=== PATIENT | male | born 1965 | race Caucasian/White ===

== ENCOUNTER 2024-12-18 16:41 | Outpatient (CLI) | payer OTHER, SELFPAY ==
--- OUTSIDE RECORDS SUMMARY | 2024-12-04 11:20 | XMS_ITS | Encounter Summary ---
Author Organization [facility] Address [address] 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 and lower extremity pain Tobacco use Procedures MR Lumbar Spine wo IV Contrast Stella Asher APRN, DNP [address] [facility] [address] [place] [address] Phone: tel: fax: Referral ID Status Reason Start Date Expiration Date V isits Requested Visits Authorized [id number] Authorized 12/04/2024 06/05/2026 1 1 Reason for Visit * Reason Comments Pre-op Exam Encounter Details Date Type Department Care Team (Late st Contact Info) Description 12/04/2024 11:20 AM EDT Consult [facility] [address] [place] [address] Stella Asher APRN, DNP [address] [place] [address] Pre-op testing (Primary Dx); Radiculopathy, lumbar region; Spinal stenosis of lumbar region with neurogenic claudication; Chronic midline low back pain with left-sided sciatica; Degeneration of intervertebral disc of lumbar region with discogenic back pain and lower extremity pain; Tobacco use Social History Tobacco Use Types Packs/Day Years Used Date Smoking Tobacco: Former Cigarettes Smokeless Tobacco: Current Chew Comments:Quit smoking 2022 Alcohol Use Standard Drinks/Week Comments Never 0 (1 standard drink = 0.6 oz pur e alcohol) PHQ-2 Answer Date Recorded Patient Health Questionnaire-2 Score 3 04/16/2024 PHQ-9 Answer Date Recorded Patient Health Questionnaire-9 Score 12 04/16/2024 Sex and Gender Information Value Date Recorded Sex Assigned at Not on file Legal Sex Male 1:54 PM EST Gender Identity Not on file Sexual Orientation Not on file documented as of this encounter Last Filed Vital Signs Vital Sign Reading Time Taken Comments Blood Pressure 120/80 12/04/2024 12:12 PM EDT Pulse 80 12/04/2024 12:12 PM EDT Temperature - - Respiratory Rate - - Oxygen Saturation 97% 12/04/2024 12: 12 PM EDT Inhaled Oxygen Concentration - - Weight 83.4 kg (183 lb 13.8 oz) 025 12:12 PM EDT Height 177.8 cm (5' 10 ) 12/04/2024 12: 12 PM EDT Body Mass Index 26.38 12/04/2024 12:12 PM EDT documented in this encounter Miscellaneous Notes * Progress Notes - Stella Asher, NUT TIGHTENER, DNP - 12/04/2024 11:20 AM EDT We had the pleasure of evaluating your patient today for preoperative neurosurgical evaluation. My full exam follows. Chief Complaint: Preoperative clearance History of Present Illness: Camilo Bowden is a pleasant 59 y.o. male with a past medical history of myocardial infarction status post PCI with a stent placement in 2016 on aspirin 81 mg, previous smoker now dependent on chewing tobacco who presents to the neurosurgical clinic for preoperative planning and assessment. He is scheduled to undergo a L4-L5 MIS TLIF with posterior lumbar fusion on 12/23/2024. As you may recall, the patient was scheduled to undergo the same surgery in December of 2023, but unfortunately it was denied by insurance as it was not documented that the patient had exhausted conservative treatment. At that point in time, the patient was reporting 2 years of progressivelyworsening back pain with left L5 radiculopathy that has worsened with standing on concrete, walking, and with any prolonged activity. He was also experiencing numbness in the same distribution. He presented back to the neurosurgical clinic in April, for continued evaluation of low back and mostly left lower extremity pain that radiated down lateral thigh and calf to the dorsum of the left foot. Today, pain continues to get progressively worse, particularly with any activity and were improved when sitting or lying down. He has exhausted conservative measures including physical therapy and epidural steroid injections. Epidural steroid injections yielded significant relief, but only lasted for 2 days. 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 Given the severe, unrelenting, and progressively worsening nature of the patient's symptoms despite multiple conservative modalities, he has elected to move forward with neurosurgical intervention. Past Medical History[1] Surgical History[2] Family History[3] Social History[4] Current Scheduled Medications[5] Current Continuous Medications[6] Current PRN Medications[7] 14 point review of systems completed and negative except as indicated in HPI Visit Vitals Smoking Status Former Appointment on 12/06/2023 Component Date Value Ref Range Status aPTT 12/06/2023 38 (H) 25 - 35 sec Final Prothrombin Time 12/06/2023 12.3 12.0 - 14.3 sec Final INR 12/06/2023 0.9 0.9 - 1.1 Final Color, Urine 12/06/2023 Yellow Final Clarity, Urine 12/06/2023 Clear Final Spec [place], Urine 12/06/2023 1.026 <=1.005 to >=1.030 Final pH, Urine 12/06/2023 5.5 4.5 to 8 Final Protein, Urine 12/06/2023 Negative Negative mg/dL Final Glucose, Urine 12/06/2023 Negative Negative mg/dL Final Ketones, Urine 12/06/2023 Negative Negative mg/dL Final Blood, Urine 12/06/2023 Negative Negative Final Bilirubin, Urine 12/06/2023 Negative Negative Final Urobilinogen, Urine 12/06/2023 0.2 0.2 to 1.0 mg/dL Final Leukocytes, Urine 12/06/2023 Negative Negative Final Nitrite, Urine 12/06/2023 Negative Negative Final Glucose, Plasma 12/06/2023 86 74 - 99 mg/dL Final BUN, Plasma 12/06/2023 21 7 - 21 mg/dL Final Creatinine, Plasma 12/06/2023 1.22 (H) 0.70 - 1.20 mg/dL Final BUN/Creatinine Ratio 12/06/2023 17 Final Sodium, Plasma 12/06/2023 139 136 - 145 mmol/L Final Potassium, Plasma 12/06/2023 4.8 3.6 - 4.9 mmol/L Final Chloride, Plasma 12/06/2023 102 97 - 107 mmol/L Final CO2, Plasma 12/06/2023 26 22 - 29 mmol/L Final Anion Gap 12/06/2023 11 6 - 16 mmol/L Final Total Calcium, Plasma 12/06/2023 10.0 8.9 - 10.2 mg/dL Final eGFRcr 12/06/2023 68.3 mL/min/1.73m*2 Final Reported eGFRcr in mL/min/1.73m2 is based the CKD-EPI 2020 equation that does not use a race coefficient. WBC Count 12/06/2023 6.90 3.70 - 10.30 10*3/uL Final RBC Count 12/06/2023 4.57 (L) 4.60 - 6.10 10*6/uL Final HGB 12/06/2023 14.0 13.7 - 17.5 g/dL Final HCT 12/06/2023 40.8 40.0 - 51.0 % Final Platelet Count 12/06/2023 284 155 - 369 10*3/uL Final MCV 12/06/2023 89 79 - 98 fL Final MCH 12/06/2023 30.6 26.0 - 32.0 pg Final MCHC 12/06/2023 34.3 30.7 - 35.5 g/dL Final RDW 12/06/2023 13.6 11.5 - 14.5 % Final MPV 12/06/2023 9.2 8.8 - 12.5 fL Final nRBC 12/06/2023 0.0 <=0.0 per 100 WBCs Final Differential Type 12/06/2023 Automated Final Neutrophils % 12/06/2023 57.0 % Final Lymphocytes % 12/06/2023 30.0 % Final Monocytes % 12/06/2023 7.0 % Final Eosinophils % 12/06/2023 5.0 % Final Basophils % 12/06/2023 1.0 % Final Immature Granulocytes % 12/06/2023 0.0 % Final Neutrophils Absolute 12/06/2023 3.96 1.60 - 6.10 10*3/uL Final Lymphocytes Absolute 12/06/2023 2.04 1.20 - 3.90 10*3/uL Final Monocytes Absolute 12/06/2023 0.46 0.30 - 0.90 10*3/uL Final Eosinophils Absolute 12/06/2023 0.36 0.00 - 0.50 10*3/uL Final Basophils Absolute 12/06/2023 0.05 0.00 - 0.10 10*3/uL Final Immature Granulocytes Absolute 12/06/2023 0.03 0.00 - 0.06 10*3/uL Final Physical Exam: General Physical Exam Constitutional No acute distress. Patient is appropriate historian and cooperative throughout exam.Well nourished, well groomed. Alert and oriented x4. Head Normocephalic and atraumatic. Eyes Pupils are equal, round, and reactive to light. Neck No tracheal deviation or JVD noted. No previous surgical scars Cardiovascular Minimal to no peripheral edema, intact distal pulses Pulmonary/Chest No increased effort noted, no shortness of breath Neurological Alert and oriented to person, place, and time Skin Skin is warm and dry Psychiatric Normal mood and affect, behavior and judgment MUSCULOSKELETAL EXAM: Upper Extremity Motor Strength Right Left C5: Deltoid 08/05 08/05 C6: Biceps 08/05 08/05 C7: Triceps 08/05 08/05 C8: Road Worker 08/05 08/05 T1: Intrinsics 08/05 08/05 Lower Extremity Motor Strength Right Left L2: Hip flexion (Iliopsoas) 08/05 08/05 L3: Knee extension (Quad) 08/05 08/05 L4: Ankle DF (TA) 08/05 08/05 L5: Great Toe DF (EHL) 08/05 08/05 S1: Ankle Pf, Foot Eversion (Peroneal longus/brevis) 5/5 5/5 S2: Great toe flexion (FHL), Knee flexion 5/5 5/5 Sensation Right Left L2: Proximal anterior thigh Normal Normal L3: Mid anterior thigh Normal Normal L4: Medial leg/foot, great toe (Saphenous n.) Normal Normal L5: Dorsum of mid foot Normal Diminished S1: Lateral leg/foot, little toe, Back of leg (Sural n.) Normal Diminished Reflexes Right Left C5: Biceps /4 2/4 C6: Brachialis /4 /4 C7: Triceps /4 2/4 L4: Patellar /04/06 S1: Achilles /04/06 SLR Negative Positive Clonus Negative Negative Hoffmans Negative Negative Imaging Studies: I personally reviewed, independently interpreted, and read available radiology reports (as available) for the following studies, and with the following findings: Again reviewed MRI lumbar spine 04/25/2023 as well as current x-ray scoliosis films and lumbar spine x-ray from today demonstrating degenerative disc disease throughout the lumbar spine most notably with left disc herniation and severe neuroforaminal stenosis at L4-5. No significant dynamic instability of the lumbar spine. Assessment/Plan: Camilo Bowden is a 59-year-old male that presents to the neurosurgery clinic today for preoperative consultation. He is scheduled to undergo a L4-L5 MIS posterior lumbar fusion with TLIF on 12/23/2024. At today's appointment, we reviewed risks and benefits of the procedure, as well as postoperative recovery period and restrictions in detail. Due to the nature of the procedure scheduled, it is anticipated that the patient will require at minimum 2-3 nights of hospitalization postoperatively for observation and pain control. Of note, the patient does have a history of myocardial infarction with stent placement on aspirin. 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 Additionally, most recent MRIs from April,. Because of this, I will order a stat lumbar spine MRI to be obtained at [facility]. We will need this prior to surgery. After explaining the possible risks and benefits of the proposed procedure, informed consent was obtained, documented, and placed in EPIC. Preoperative laboratory studies and EKG were obtained prior to departure from clinic, and the patient was given instructions for the day of surgery. I educated patient on red flag symptoms that would require emergent intervention. We counseled the patient for 3-10 minutes regarding tobacco cessation. Discussion included negative health effects of tobacco including but not limited to increased risk of lung cancer, worsening of backpain, heart disease, and stroke. Patient was agreeable with this plan. They were given the opportunity to ask questions, which were answered to their satisfaction. They were informed to to contact the Neurosurgery clinic with any questions, concerns, or worsening symptoms. Quality of Life Indexes: VAS: 5/10 NDI/VANESSA: 24/50 EQ-5D: 12/21 Patient specific comorbidities further complicating management during the perioperative period include: -HTN - with a last BP of: BP Readings from Last 3 Encounters: 12/04/24 120/80 08/07/24 107/69 06/25/24 (!) 159/97 -HLD -CAD - s/p -Tobacco use I personally spent a total of 45 minutes on this encounter. This time includes face to face with patient, and review of imaging, counseling and discussion and/or coordination of care. Parts of this note were dictated using [employer] voice recognition software. As a result, errors may occur. When identified, these timber cruiser errors are corrected, but while every attempt is made to prevent/correct these, errors may still exist. Stella Asher DNP, NUT TIGHTENER [facility] Department of Neurosurgery Camilo was seen today for pre-op exam. Diagnoses and all orders for this visit: Pre-op testing (Primary) - Hemoglobin A1c; Future - Basic metabolic panel; Future - CBC and differential; Future - APTT; Future - Protime-INR; Future - Urinalysis with reflex microscopic; Future - ECG Adult; Future - Nicotine and Cotinine, Urine; Future - Comprehensive Urine Drug Screening, Qualitative Assay, >= 27 Drug Classes; Future - MR Lumbar Spine wo IV Contrast; Future Radiculopathy, lumbar region - MR Lumbar Spine wo IV Contrast; Future Spinal stenosis of lumbar region with neurogenic claudication - MR Lumbar Spine wo IV Contrast; Future Chronic midline low back pain with left-sided sciatica - MR Lumbar Spine wo IV Contrast; Future Degeneration of intervertebral disc of lumbar region with discogenic back pain and lower extremity pain - MR Lumbar Spine wo IV Contrast; Future Tobacco use - Nicotine and Cotinine, Urine; Future - MR Lumbar Spine wo IV Contrast; Future [1] Past Medical History: Diagnosis Date High blood triglycerides Hypertension [2] Past Surgical History: Procedure Laterality Date CARDIAC STENT COLONOSCOPY HERNIA REPAIR [3] No family history on file. [4] Social History Tobacco Use Smoking status: Former Types: Cigarettes Smokeless tobacco: Current Types: Chew Vaping Use Vaping status: Never Used Substance Use Topics Alcohol use: Never Drug use: Never [5] [6] [7] PRN medications: sodium chloride, sodium chloride documented in this encounter Plan of Treatment Upcoming Encounters Date Type Department Care Team (Late st Contact Info) Description 12/23/2024 10:30 AM EDT Hospital Encounter [facility] [address] [place] [address] Amita Atkinson MD [address] [place] [address] 12/23/2024 10:30 AM EDT Anesthesia Event [facility] [address] [place] [address] Muriel Back PA [address] [place] [address] 12/23/2024 10:30 AM EDT - 12/23/2024 3:10 PM EDT Surgery [facility] [address] [place] [address] Amita Atkinson MD [address] [facility] [place] [address] L4-L5 MIS PLF/TLIF w/Teligen 01/08/2025 11:20 AM EDT [facility] [address] [place] [address] Stella Asher APRN, DNP [address] [place] [address] 02/06/2025 12:00 PM EST Office Visit [facility] [address] [place] [address] Stella Asher APRN, ARVIN [address] [place] [address] 04/08/2025 2:00 PM EST Office Visit [facility] [address], [address] [place] [address] Amita Atkinson MD [address] [facility] [place] [address] Scheduled Orders Name Type Priority Associated Diagnoses Orde r Schedule ECG Adult ECG Routine Pre-op testing Expected: 12/02/2024, Expires: 12/02/2025 MR Lumbar Spine wo IV Contrast Imaging STAT Pre-op testing Radiculopathy, lumbar region Spinal stenosis of lumbar region with neurogenic claudication 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 and lower extremity pain Tobacco use Expected: 12/04/2024 (Approximate), Expires: 06/07/2026 Scheduled Procedures Name Priority Associated Diagnoses Date/Ti me FUSION, SPINE, LUMBAR, MINIMALLY INVASIVE Spinal stenosis of lumbar region, unspecified whether neurogenic claudication present 12/23/2024 10:30 AM EDT FUSION, SPINE, LUMBAR, TLIF Spinal stenosis of lumbar region, unspecified whether neurogenic claudication present 12/23/2024 10:30 AM EDT ADD ON SPINE NAVIGATION Spinal stenosis of lumbar region, unspecified whether neurogenic claudication present 12/23/2024 10:30 AM EDT documented as of this encounter Results * (ABNORMAL) Comprehensive Urine Drug Screening, Qualitative Assay, >= 27 Drug Classes (52:02 PM EDT) [facility] Signature Acetaminophen Negative Negative 12/05/2024 10:15 AM EDT [facility] Alprazolam Negative Negative 12/05/2024 10:15 AM EDT [facility] Amantadine Negative Negative 12/05/2024 10:15 AM EDT [facility] Amitriptyline Negative Negative 12/05/2024 10:15 AM EDT [facility] Amphetamine Negative Negative 12/05/2024 10:15 AM EDT [facility] Atenolol Negative Negative 12/05/2024 10:15 AM EDT [facility] Benzoylecgonine Negative Negative 10:15 AM EDT [facility] Bisoprolol Negative Negative 12/05/2024 10:15 AM EDT [facility] Bupropion Negative Negative 12/05/2024 10:15 AM EDT [facility] Butalbital Negative Negative 12/05/2024 10:15 AM EDT [facility] Carbamazepine Negative Negative 12/05/2024 10:15 AM EDT [facility] Carisoprodol Negative Negative 12/05/2024 10:15 AM EDT [facility] Chlorpheniramine Negative Negative 12/06/19 10:15 AM EDT [facility] Citalopram Negative Negative 12/05/2024 10:15 AM EDT [facility] Clindamycin Negative Negative 12/05/2024 10:15 AM EDT [facility] Clonidine Negative Negative 12/05/2024 10:15 AM EDT [facility] Clopidogrel / Ticlopidine Negative Negative 12/05/2024 10:15 AM EDT [facility] Cocaethylene Negative Negative 12/05/2024 10:15 AM EDT [facility] Cocaine Negative Negative 12/05/2024 10:15 AM EDT [facility] Codeine Negative Negative 12/05/2024 10:15 AM EDT [facility] Cyclobenzaprine Negative Negative 10:15 AM EDT [facility] Desvenlafaxine Negative Negative 12/05/2024 10:15 AM EDT [facility] Dextromethorphan Negative Negative 12/06/19 10:15 AM EDT [facility] Diazepam Negative Negative 12/05/2024 10:15 AM EDT [facility] Diltiazem Negative Negative 12/05/2024 10:15 AM EDT [facility] Diphenhydramine Negative Negative 10:15 AM EDT [facility] Doxepine Negative Negative 12/05/2024 10:15 AM EDT [facility] Doxylamine Negative Negative 12/05/2024 10:15 AM EDT [facility] EDDP-Methadone metabolite Negative Negative 12/05/2024 10:15 AM EDT [facility] Fentanyl Negative Negative 12/05/2024 10:15 AM EDT [facility] Fluconazole Negative Negative 12/05/2024 10:15 AM EDT [facility] Fluoxetine Negative Negative 12/05/2024 10:15 AM EDT [facility] Guaifenesin Negative Negative 12/05/2024 10:15 AM EDT [facility] Haloperidol Negative Negative 12/05/2024 10:15 AM EDT [facility] Heroin/6-BREA Negative Negative 12/05/2024 10:15 AM EDT [facility] Hydrocodone Negative Negative 12/05/2024 10:15 AM EDT [facility] Hydroxyzine / Cetirizine metabolite Negative Negative 12/05/2024 10:15 AM EDT [facility] Ibuprofen Negative Negative 12/05/2024 10:15 AM EDT [facility] Imipramine Negative Negative 12/05/2024 10:15 AM EDT [facility] Ketamine Negative Negative 12/05/2024 10:15 AM EDT [facility] Labetolol Negative Negative 12/05/2024 10:15 AM EDT [facility] Lamotrigine Negative Negative 12/05/2024 10:15 AM EDT [facility] Levetiracetam Negative Negative 12/05/2024 10:15 AM EDT [facility] Lidocaine Negative Negative 12/05/2024 10:15 AM EDT [facility] MDA Negative Negative 12/05/2024 10:15 AM EDT [facility] MDMA Negative Negative 12/05/2024 10:15 AM EDT [facility] Memantine Negative Negative 12/05/2024 10:15 AM EDT [facility] Meperidine Negative Negative 12/05/2024 10:15 AM EDT [facility] Meprobamate Negative Negative 12/05/2024 10:15 AM EDT [facility] Metaxalone Negative Negative 12/05/2024 10:15 AM EDT [facility] Methamphetamine Negative Negative 10:15 AM EDT [facility] Methocarbamol Negative Negative 12/05/2024 10:15 AM EDT [facility] Methylecgonine Negative Negative 12/05/2024 10:15 AM EDT [facility] Metoclopramide Negative Negative 12/05/2024 10:15 AM EDT [facility] Metoprolol Negative Negative 12/05/2024 10:15 AM EDT [facility] Metronidazole Negative Negative 12/05/2024 10:15 AM EDT [facility] Midazolam Negative Negative 12/05/2024 10:15 AM EDT [facility] Midazolam Metabolite Negative Negative 12/05/2024 10:15 AM EDT [facility] Mirtazapine Negative Negative 12/05/2024 10:15 AM EDT [facility] Misc Test Result Negative Negative 12/06/19 10:15 AM EDT [facility] Naproxen Positive(A) Negative 12/05/2024 10:15 AM EDT [facility] Nefazodone Negative Negative 12/05/2024 10:15 AM EDT [facility] Norfentanyl Negative Negative 12/05/2024 10:15 AM EDT [facility] Nortriptyline Negative Negative 12/05/2024 10:15 AM EDT [facility] Ordanstron Negative Negative 12/05/2024 10:15 AM EDT [facility] Oxcarbazepine Negative Negative 12/05/2024 10:15 AM EDT [facility] Oxycodone Negative Negative 12/05/2024 10:15 AM EDT [facility] Paroxethine Negative Negative 12/05/2024 10:15 AM EDT [facility] Phenobarbital Negative Negative 12/05/2024 10:15 AM EDT [facility] Phentermine Negative Negative 12/05/2024 10:15 AM EDT [facility] Phenytoin Negative Negative 12/05/2024 10:15 AM EDT [facility] Primidone Negative Negative 12/05/2024 10:15 AM EDT [facility] Promethazine Negative Negative 12/05/2024 10:15 AM EDT [facility] Propofol Negative Negative 12/05/2024 10:15 AM EDT [facility] Propranolol Negative Negative 12/05/2024 10:15 AM EDT [facility] Quetiapine Negative Negative 12/05/2024 10:15 AM EDT [facility] Quinine Negative Negative 12/05/2024 10:15 AM EDT [facility] Rantidine Negative Negative 12/05/2024 10:15 AM EDT [facility] Sertraline Negative Negative 12/05/2024 10:15 AM EDT [facility] Spironolactone Negative Negative 12/05/2024 10:15 AM EDT [facility] Tizanidine Negative Negative 12/05/2024 10:15 AM EDT [facility] Topiramate Negative Negative 12/05/2024 10:15 AM EDT [facility] Tramadol Negative Negative 12/05/2024 10:15 AM EDT [facility] Trazadone/ Trazadone metabolite Negative Negative 12/05/2024 10:15 AM EDT [facility] Trimethoprim Negative Negative 12/05/2024 10:15 AM EDT [facility] Valproic Acid Negative Negative 12/05/2024 10:15 AM EDT [facility] Venlafaxine Negative Negative 12/05/2024 10:15 AM EDT [facility] Verapamil Negative Negative 12/05/2024 10:15 AM EDT [facility] Zolpidem Negative Negative 12/05/2024 10:15 AM EDT [facility] Xylazine Negative Negative 12/05/2024 10:15 AM EDT [facility] Urine Urine specimen obtained by clean catch procedure / Unknown Non-blood Collection / Unknown 12/04/2024 2:02 PM EDT 12/04/2024 2:02 PM EDT Stella Asher APRN, DNP LAB URINE ORDERABLES F inal Result Performing Organization Address [facility] Co de Phone Number [facility] [address] [place] [address] * (ABNORMAL) Nicotine and Cotinine, Urine (12/04/2024 2:02 PM EDT) Nicotine, Urine 63(H) <5 ng/mL 12/09/2024 12:28 PM EDT [facility] Cotinine, Urine 844(H) <5 ng/mL 12/09/2024 12:28 PM EDT [facility] Anabasine, Urine <2 <2 ng/mL 12/09/2024 12:28 PM EDT [facility] Urine Urine specimen obtained by clean catch procedure / Unknown Non-blood Collection / Unknown 12/04/2024 2:02 PM EDT 12/04/2024 2:02 PM EDT Narrative [facility] - 12/09/2024 12:28 PM EDT Test performed by LC-MS/MS at the [facility]. This test was developed and its performance characteristics determined by [facility]. It has not been cleared or approved by the FDA. The laboratory is regulated under CLIA as qualified to perform high-complexity testing. This test is used for clinical purposes. Stella Asher APRN, DNP LAB URINE ORDERABLES F inal Result Performing Organization Address City/[facility]/ZIP Co de Phone Number [facility] [address] [place] [address] * (ABNORMAL) Urinalysis with reflex microscopic (12/04/2024 2:02 PM EDT) Color, Urine Yellow LAB URINALYSIS - AUTOMATED METHOD 12/04/2024 3:36 PM EDT [facility] Clarity, Urine Clear LAB URINALYSIS - AUTOMATED METHOD 12/04/2024 3:36 PM EDT [facility] Spec [place], Urine 1.022 1.005 - 1.030 LAB URINALYSIS - AUTOMATED METHOD 12/04/2024 3:36 PM EDT [facility] pH, Urine 7.5 5.0 - 8.0 LAB URINALYSIS - AUTOMATED METHOD 12/04/2024 3:36 PM EDT [facility] Protein, Urine Trace(A) Negative mg/dL LAB URINALYSIS - AUTOMATED METHOD 12/04/2024 3:36 PM EDT [facility] Glucose, Urine Negative Negative mg/dL LAB URINALYSIS - AUTOMATED METHOD 12/04/2024 3:36 PM EDT [facility] Ketones, Urine Negative Negative mg/dL LAB URINALYSIS - AUTOMATED METHOD 12/04/2024 3:36 PM EDT [facility] Blood, Urine Negative Negative LAB URINALYSIS - AUTOMATED METHOD 12/04/2024 3:36 PM EDT [facility] Bilirubin, Urine Negative Negative LAB URINALYSIS - AUTOMATED METHOD 12/04/2024 3:36 PM EDT [facility] Urobilinogen, Urine 0.2 0.2 to 1.0 mg/dL LAB URINALYSIS - AUTOMATED METHOD 12/04/2024 3:36 PM EDT [facility] Leukocytes, Urine Negative Negative LAB URINALYSIS - AUTOMATED METHOD 12/04/2024 3:36 PM EDT [facility] Nitrite, Urine Negative Negative LAB URINALYSIS - AUTOMATED METHOD 12/04/2024 3:36 PM EDT [facility] Urine Urine specimen obtained by clean catch procedure / Unknown Non-blood Collection / Unknown 12/04/2024 2:02 PM EDT 12/04/2024 2:02 PM EDT us Stella Asher APRN, DNP LAB URINE ORDERABLES F inal Result [facility] [address] [place] [address] * Protime-INR (12/04/2024 1:56 PM EDT) Prothrombin Time 13.0 12.0 - 14.3 sec LAB COAGULATION METHOD 12/04/2024 3:44 PM EDT [facility] INR 1.0 0.9 - 1.1 LAB COAGULATION METHOD 12/04/2024 3:44 PM EDT [facility] Blood Venous blood specimen / Unknown Venipuncture / Unknown 12/04/2024 1:56 PM EDT 12/04/2024 1:56 PM EDT Narrative [facility] - 12/04/2024 3:44 PM EDT OPTIMAL INR RANGES FOR PATIENT ON ORAL ANTICOAGULANT THERAPY Prevention of venous thromboembolism INR 2.0 to 3.0 In patients with heart disease: Atrial fibrillation INR 2.0 to 3.0 Valvular heart disease INR 2.0 to 3.0 Tissue heart valves INR 2.0 to 3.0 Mechanical prosthetic valves INR 2.5 to 3.5 Prevention of recurrent MD INR 2.5 to 3.5 Stella Asher APRN, ARVIN LAB BLOOD ORDERABLES F inal Result Performing Organization Address City/[facility]/ZIP Co de Phone Number [facility] [address] [place] [address] * APTT (12/04/2024 1:56 PM EDT) aPTT 33 25 - 35 sec LAB COAGULATION METHOD 12/04/2024 3:44 PM EDT [facility] Blood Venous blood specimen / Unknown Venipuncture / Unknown 12/04/2024 1:56 PM EDT 12/04/2024 1:56 PM EDT Stella Asher APRN, DNP LAB BLOOD ORDERABLES F inal Result [facility] [address] [place] [address] * (ABNORMAL) CBC and differential (12/04/2024 1:56 PM EDT) WBC Count 7.95 3.70 - 10.30 10*3/uL LAB HEMATOLOGY METHOD 12/04/2024 3:39 PM EDT [facility] RBC Count 4.15(L) 4.60 - 6.10 10*6/uL LAB HEMATOLOGY METHOD 12/04/2024 3:39 PM EDT [facility] HGB 13.0(L) 13.7 - 17.5 g/dL LAB HEMATOLOGY METHOD 12/04/2024 3:39 PM EDT [facility] HCT 37.8(L) 40.0 - 51.0 % LAB HEMATOLOGY METHOD 12/04/2024 3:39 PM EDT [facility] Platelet Count 288 155 - 369 10*3/uL LAB HEMATOLOGY METHOD 12/04/2024 3:39 PM EDT [facility] MCV 91 79 - 98 fL LAB HEMATOLOGY METHOD 12/04/2024 3:39 PM EDT [facility] MCH 31.3 26.0 - 32.0 pg LAB HEMATOLOGY METHOD 12/04/2024 3:39 PM EDT [facility] MCHC 34.4 30.7 - 35.5 g/dL LAB HEMATOLOGY METHOD 12/04/2024 3:39 PM EDT [facility] RDW 13.9 11.5 - 14.5 % LAB HEMATOLOGY METHOD 12/04/2024 3:39 PM EDT [facility] MPV 9.3 8.8 - 12.5 fL LAB HEMATOLOGY METHOD 12/04/2024 3:39 PM EDT [facility] nRBC 0.0 <=0.0 per 100 WBCs LAB HEMATOLOGY METHOD 12/04/2024 3:39 PM EDT [facility] Differential Type Automated LAB HEMATOLOGY METHOD 12/04/2024 3:39 PM EDT [facility] Neutrophils % 69 % LAB HEMATOLOGY METHOD 12/04/2024 3:39 PM EDT [facility] Lymphocytes % 21 % LAB HEMATOLOGY METHOD 12/04/2024 3:39 PM EDT [facility] Monocytes % 6 % LAB HEMATOLOGY METHOD 12/04/2024 3:39 PM EDT [facility] Eosinophils % 3 % LAB HEMATOLOGY METHOD 12/04/2024 3:39 PM EDT [facility] Basophils % 1 % LAB HEMATOLOGY METHOD 12/04/2024 3:39 PM EDT [facility] Immature Granulocytes % 0 % LAB HEMATOLOGY METHOD 12/04/2024 3:39 PM EDT [facility] Neutrophils Absolute 5.48 1.60 - 6.10 10*3/uL LAB HEMATOLOGY METHOD 12/04/2024 3:39 PM EDT [facility] Lymphocytes Absolute 1.67 1.20 - 3.90 10*3/uL LAB HEMATOLOGY METHOD 12/04/2024 3:39 PM EDT [facility] Monocytes Absolute 0.47 0.30 - 0.90 10*3/uL LAB HEMATOLOGY METHOD 12/04/2024 3:39 PM EDT [facility] Eosinophils Absolute 0.27 0.00 - 0.50 10*3/uL LAB HEMATOLOGY METHOD 12/04/2024 3:39 PM EDT [facility] Basophils Absolute 0.04 0.00 - 0.10 10*3/uL LAB HEMATOLOGY METHOD 12/04/2024 3:39 PM EDT [facility] Immature Granulocytes Absolute 0.02 0.00 - 0.06 10*3/uL LAB HEMATOLOGY METHOD 12/04/2024 3:39 PM EDT [facility] Blood Venous blood specimen / Unknown Venipuncture / Unknown 12/04/2024 1:56 PM EDT 12/04/2024 1:56 PM EDT Narrative [facility] - 12/04/2024 3:39 PM EDT Therapeutic decision making should be based on absolute values, rather than percentages. us Stella Asher APRN, DNP LAB BLOOD ORDERABLES F inal Result [facility] [address] [place] [address] * (ABNORMAL) Basic metabolic panel (12/04/2024 1:56 PM EDT) [facility] Glucose, Plasma 74 74 - 99 mg/dL 12/04/2024 3:54 PM EDT [facility] BUN, Plasma 17 8 - 23 mg/dL 12/04/2024 3:54 PM EDT [facility] Creatinine, Plasma 1.27(H) 0.70 - 1.20 mg/dL 12/04/2024 3:54 PM EDT [facility] BUN/Creatinine Ratio 13 12/04/2024 3:54 PM EDT [facility] Sodium, Plasma 138 136 - 145 mmol/L 12/04/2024 3:54 PM EDT [facility] Potassium, Plasma 4.2 3.6 - 4.9 mmol/L 12/04/2024 3:54 PM EDT [facility] Chloride, Plasma 102 97 - 107 mmol/L 12/04/2024 3:54 PM EDT [facility] CO2, Plasma 23 22 - 29 mmol/L 12/04/2024 3:54 PM EDT [facility] Anion Gap 13 6 - 16 mmol/L 12/04/2024 3:54 PM EDT [facility] Total Calcium, Plasma 9.2 8.9 - 10.2 mg/dL 12/04/2024 3:54 PM EDT [facility] eGFRcr 64.7 mL/min/1.7 3m*2 12/04/2024 3:54 PM EDT [facility] Comment:Reported eGFRcr in m L/min/1.73m2 is based the CKD-EPI 2020 equation that does not use a race coefficient. Blood Venous blood specimen / Unknown Venipuncture / Unknown 12/04/2024 1:56 PM EDT 12/04/2024 1:56 PM EDT us Stella Asher APRN, DNP LAB BLOOD ORDERABLES F inal Result [facility] [address] [place] [address] * Hemoglobin A1c (12/04/2024 1:56 PM EDT) Hemoglobin A1c 5.5 <5.7 % 12/04/2024 4:35 PM EDT [facility] Blood Venous blood specimen / Unknown Venipuncture / Unknown 12/04/2024 1:56 PM EDT 12/04/2024 1:56 PM EDT Narrative [facility] - 12/04/2024 4:35 PM EDT HA1C Interpretive Data: Diagnosis of Diabetes: Diabetic > or = 6.5% Pre-diabetic 5.7 to 6.4% Non-diabetic < or = 5.6% Glycemic Targets for Type I and Type II Diabetics: Non- Adults <7.0% Adults <6.0% Children and Adolescents <7.5% Source: [place] [employer]. Standards of medical care in diabetes,2017. Diabetes Care.2017:40 (suppl 1):S1-S135. 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 and lower extremity pain Tobacco use Spinal stenosis of lumbar region, unspecified whether neurogenic claudication present documented in this encounter Additional Health Concerns Assessment Noted Time PHQ-9 Depression Total Score: 12 025 1:14 PM EST A fall risk assessment has been complete d for the patient 12/04/2024 12:12 PM EDT A Body Mass Index follow-up plan has been documented for the patient 12/04/2024 9:07 PM EDT documented as of this encounter Care Teams Process Laboratory Specialist Relationship Specialty Start Date End Date Maury Park MD [address] [place] [id number] PCP - General 06/06/23 documented as of this encounter
--- OUTSIDE RECORDS SUMMARY | 2024-12-04 12:30 | XMS_ITS | Encounter Summary ---
Author Organization [facility] Address [address] [place] [address] Care Team Providers Care Mis Director Name Role Phone Maury Park MD Primary Care Provider [phone] Encounter Details Date Type Department Care Team (Latest Contact Info) Description 12/04/2024 12:30 PM EDT Pre-Admission Testing [facility] [address] [place] [address] Preop examination (Primary Dx) Anesthesia Record Procedure Summary Procedure Name Responsible Anesthesiologist Anesthesia Start Time Anesthesia Stop Time L4-L5 MIS PLF/TLIF w/Teligen (Spine Lumbar) Events No events on file. Meds * Agents No agents on file. * Blood No blood administrations on file. Lines, Drains, and Airways No LDAs on file. documented in this encounter Social History Tobacco Use Types Packs/Day Years Used Date Smoking Tobacco: Former Cigarettes Smokeless Tobacco: Current Chew Tobacco Cessation:Ready to Q uit: Not Asked; Counseling Given: Not Answered Comments:Quit smoking 2022 Alcohol Use Standard Drinks/Week [...] on file documented as of this encounter Miscellaneous Notes * PAT Evaluation Note - Muriel Back PA - 12/04/2024 12:30 PM EDT Images from the original note were not included. BHARATHI Bowden is a 59 y.o. male who presents with Pre-op Diagnosis * Spinal stenosis of lumbar region, unspecified whether neurogenic claudication present [M48.061] now scheduled for L4-L5 MIS PLF/TLIF w/Teligen (N/A), L4-L5 MIS PLF/TLIF w/Teligen (N/A), ADD ON SPINE NAVIGATION (N/A) with Amita Atkinson MD on 12/23/2024 at [facility] history includes CAD, prior heart attack, heart stent, and daily use of aspirin 81 mg Past Medical History[1] Family History[2] Social History[3] SURGICAL HISTORY: Surgical History[4] Allergies[5] MEDICATIONS: Current Medications[6] ROS Anesthesia: Date of last anesthetic: Last GA in his 30s history of previous anesthesia. Does not have a history of anesthetic complications and obstructivesleep apnea. Cardiovascular: CAD (stent placed 2017 - no chest pain since), hyperlipidemia and past OK. Does not have atrial fibrillation, CHF, dysrhythmias or pacemaker. hypertension: Exercise tolerance is 1 flight of stairs. Does not have chest pain. Cardio additional comments: No current active cardiac complaints PCP manages cardiac care Activity limited by back and leg pain. Respiratory: Does not have home oxygen. no asthma: COPD (mild emphysema): Has not had an upper respiratory infection in last 30 days. Has not had pneumonia in the last 30 days or COVID in the last 30 days. Neurological: no seizures: Did not have a cerebrovascular accident. Musculoskeletal: Does not have cervical spine limited mobility. Gastrointestinal: GERD (occasional - tums manages PRN):Does not have cirrhosis. Genitourinary: Does not have chronic renal disease.Does not have renal disease (CR 1.27 on 12/04/24 - no renal diagnosis). Hematological/Lymphatic: History of no DVT. History of no pulmonary embolism. Not in a hypercoagulable state. no history of chemotherapy no history of radiation Does not have HIV, MRSA or tuberculosis. Hem/Lymph ROS additional comments: ASA 81 mg QD Endocrine/Metabolic: does not have diabetes mellitus. Does not have thyroid disorder. Lab Results Component Value Date WBC 7.95 12/04/2024 HGB 13.0 (L) 12/04/2024 HCT 37.8 (L) 12/04/2024 MCV 91 12/04/2024 PLT 288 12/04/2024 Lab Results Component Value Date GLUCOSE 74 12/04/2024 BUN 17 12/04/2024 CREATININE 1.27 (H) 12/04/2024 BCR 13 12/04/2024 NA 138 12/04/2024 K 4.2 12/04/2024 CL 102 12/04/2024 CO2 23 12/04/2024 ALBUMIN 4.30 11/22/2021 BILITOT 0.4 11/22/2021 Lab Results Component Value Date HGBA1C 5.5 12/04/2024 Lab Results Component Value Date INR 1.0 12/04/2024 INR 0.9 12/06/2023 Visit Vitals Smoking Status Former 12/04/2024 12:12 PM Vitals Systolic 120 Diastolic 80 Heart Rate 80 Height (cm) 177.8 cm Weight (kg) 83.4 kg BMI 26.38 kg/m2 BSA (m2) 2.03 m2 Physical Exam Airway Mallampati: III Mouth opening: normal TM distance: >3 FB Comments: Mild limited ROM neck Cardiovascular Rhythm: regular Rate: normal Dental (+) upper dentures, lower dentures Pulmonary Breath sounds clear to auscultation Neurological Oriented: normal to time, normal to person and normal to place Skin Musculoskeletal Extremities Anesthesia Plan ASA 3 Anesthesia technique(s) discussed with the patient/family: JAYNA Kuo [1] Past Medical History: Diagnosis Date High blood triglycerides Hypertension [2] Family History Problem Relation Name Age of Onset Anesthesia problems Neg Hx Malig Hyperthermia Neg Hx [3] Social History Tobacco Use Smoking status: Former Types: Cigarettes Smokeless tobacco: Current Types: Chew Tobacco comments: Quit smoking 2022 Vaping Use Vaping status: Never Used Substance Use Topics Alcohol use: Never Drug use: Never [4] Past Surgical History: Procedure Laterality Date CARDIAC STENT COLONOSCOPY HERNIA REPAIR [5] Allergies Allergen Reactions Clopidogrel Nausea [6] Current Outpatient Medications: aspirin, Chew 1 tablet daily. lisinopril, Take 1 tablet by mouth daily. meclizine, take one (1) tablet three (3) times a day by oral route. promethazine, TAKE ONE (1) TABLET EVERY FOUR (4) HOURS BY ORAL ROUTE. rOPINIRole, take one (1) tablet every day by oral route in the evening. rosuvastatin, Take 1 tablet by mouth daily. cyclobenzaprine, Take 1 tablet (5 mg) by mouth 3 (three) times a day if needed for muscle spasms. lisinopril, Take 1 tablet (10 mg) by mouth daily. (Patient not taking: Reported on 12/04/2024) nitroglycerin, Place under the tongue every 5 (five) minutes if needed. Current Facility-Administered Medications: sodium chloride sodium chloride * Preprocedure Instructions - Muriel Back PA - 12/04/2024 12:30 PM EDT Home Medication Instructions Current Medications Medication Instructions ASPIRIN 81 MG chewable tablet Take morning of surgery lisinopril 20 MG tablet Hold day of surgery meclizine (Antivert) 25 MG tablet Take as needed promethazine (Phenergan) 25 MG tablet Take as needed rOPINIRole (Requip) 0.25 MG tablet Take night before surgery rosuvastatin (Crestor) 20 MG tablet Take morning of surgery General Preoperative Instructions You will be called the business day before surgery with your arrival time No food after midnight the night before surgery. You can drink clear liquids up to 2 hours prior to arrival unless instructed by your surgeon otherwise. Please do not try to get all your hydration in 2 hours prior to arrival. Start the day before surgery drinking more than you usually would. After midnight, you can have clear liquids only (water, apple juice, Gatorade) up to 2 hours prior to arrival. No coffee or tea. No alcohol or smoking prior to surgery Arrive on time to avoid delays Parking/Registration procedure explained You MUST have a responsible adult available for transport to and from hospital Visitation policy for the day of surgery reviewed Bring insurance card, photo ID, along with power of deputy prosecuting attorney, guardianship or advanced directives if applicable Do not bring money, jewelry or other valuables Hibiclens bathing instructions reviewed if applicable Notify surgeon of fever, illness, any changes or if you decide not to have surgery Diabetes Instructions (If applicable) Take diabetes medication as instructed You may have up to 4 ounces of apple juice 2 hours prior to arrival for surgery for low glucose documented in this encounter Plan of Treatment Upcoming Encounters Date Type Department Care Team (Late st Contact Info) Description 12/23/2024 10:30 AM EDT Hospital Encounter [facility] [address] [place] [address] Amita Atkinson MD [address] [place] [address] 12/23/2024 10:30 AM EDT Anesthesia Event [facility] [address] [place] [address] Muriel Back PA [address] [place] [address] 12/23/2024 10:30 AM EDT - 12/23/2024 3:10 PM EDT Surgery [facility] [address] [place] [address] Amita Atkinson MD [address] [place] [address] L4-L5 MIS PLF/TLIF w/Teligen 01/08/2025 11:20 AM EDT Office Visit [facility] [address] [place] [address] Stella Asher, SYSTEM SUPPORT SPECIALIST, DNP [address] [place] [address] 02/06/2025 12:00 PM EST Office Visit [facility] [address] [place] [address] Stella Asher, SYSTEM SUPPORT SPECIALIST, DNP [address] [place] [address] 04/08/2025 2:00 PM EST Office Visit [facility] [address] [place] [address] Amita Atkinson MD [address] [place] [address] Scheduled Procedures Name Priority Associated Diagnoses Date/Ti [...] AM EDT documented as of this encounter Procedures Procedure Name Priority Date/Time Associated Diagnosis Comments ECG ADULT Routine 12/04/2024 1:23 PM EDT Preop examination documented in this encounter Results * ECG Adult (Now - Performed in your clinic) (12/04/2024 1:23 PM EDT) EKG DIAGNOSIS CLASS Normal MUSE ECG Ventricular Rate 76 BPM MUSE ECG Atrial Rate 76 BPM MUSE ECG NM Interval 138 ms MUSE ECG QRSD Interval 66 ms MUSE ECG QT Interval 354 ms MUSE ECG QTC Interval 398 ms MUSE ECG P [place] 59 degrees MUSE ECG R [place] 25 degrees MUSE ECG T Wave [place] 45 degrees MUSE ECG Diagnosis Normal sinus rhythm MUSE ECG Diagnosis MUSE ECG Diagnosis MUSE ECG Diagnosis Confirmed by Manuel Salamanca ([id number]) on 12/04/2024 2:00:11 PM MUSE ECG 12/04/2024 1:23 PM EDT 12/04/2024 2:00 PM EDT us Muriel DORANTES ECG ORDERABLES Final Resu lt MUSE ECG documented in this encounter Visit Diagnoses Diagnosis Spinal stenosis of lumbar region- Primary Preop examination- Primary Unspecified pre-operative examination Spinal stenosis of lumbar region, unspecified whether [...] documented as of this encounter Care Teams Mis Director Relationship Specialty Start Date End Date Maury Park MD [address] [place] [address] PCP - General 06/06/23 documented as of this encounter
--- NOTE | 2024-12-18 | MR_ITS ---
PROCEDURE INFORMATION: Exam: MR Lumbar Spine Without Contrast Exam date and time: 12/18/2024 5:07 PM Age: 59 years old Clinical indication: Low back pain that radiates down both legs TECHNIQUE: Imaging protocol: Magnetic resonance imaging of the lumbar spine without contrast. COMPARISON: No relevant prior studies available. FINDINGS: Bones/joints: Vertebral body heights are preserved. There is slight stepwise posterior positioning of L3-L4 and L4-L5. Spondylosis is noted with disc bulging, facet arthropathy and ligamentous thickening. Spinal cord: Visualized cord, conus medullaris and cauda equina are unremarkable without compression. L1-L2: No significant disc bulge or herniation. No severe spinal canal stenosis. No significant neural foraminal narrowing. L2-L3: At L2-L3 there is disc bulging with facet arthropathy. There is minor canal narrowing and mild neural foraminal stenosis, worse on the left. L3-L4: At L3-L4 there is disc bulging with facet arthropathy ligament thickening. There is mild to moderate canal narrowing, moderate to severe neural foraminal stenosis, worse on the right. L4-L5: At L4-L5 there is disc bulging and facet arthropathy, superimposed central protrusion and annular high-intensity zone. There is moderate concentric canal narrowing, moderate to severe right-sided and severe left-sided neural foraminal narrowing. L5-S1: At L5-S1 there is disc bulging with facet arthropathy. There is no significant canal narrowing, moderate to severe right-sided and severe left-sided neural foraminal narrowing. Her there is lower right renal atrophy. Soft tissues: Unremarkable. IMPRESSION: Lumbar spondylosis as described affecting mainly the neural foramina.
--- OUTSIDE RECORDS SUMMARY | 2024-12-18 16:43 | XMS_ITS | Encounter Summary ---
Author Organization [facility] Address [address] [place] [address] Care Team Providers Care Job Printer Apprentice Name Role Phone Maury Park MD Primary Care Provider [phone] Encounter Details Date Type Department Care Team (Latest Contact Info) Description 12/03/2024 Travel Social History Tobacco Use Types Packs/Day Years Used Date Smoking Tobacco: Former Cigarettes Smokeless Tobacco: Current Chew Alcohol Use Standard Drinks/Week Comments Never 0 [...] on file documented as of this encounter Plan of Treatment Upcoming Encounters Date Type Department Care Team (Late st Contact Info) Description 12/23/2024 10:30 AM EDT Hospital Encounter [facility] [address] [place] [phone] Amita Atkinson MD [address] [place] [address] 12/23/2024 10:30 AM EDT Anesthesia Event [facility] [address] [place] [phone] Muriel Back PA [address] [place] [address] 12/23/2024 10:30 AM EDT - 12/23/2024 3:10 PM EDT Surgery [facility] [address] [place] [address] Amita Atkinson MD [address] [place] [address] L4-L5 MIS PLF/TLIF w/Teligen 01/08/2025 11:20 AM EDT Office Visit [facility] [address] [place] [address] Stella Asher APRN, DNP [address] [place] [address] 02/06/2025 12:00 PM EST Office Visit [facility] [address] [place] [address] Stella Asher APRN, DNP [address] [place] [address] 04/08/2025 2:00 PM EST Office Visit [facility] [address] [place] [address] Amita Atkinson MD [address] [place] [address] Scheduled Procedures Name Priority Associated Diagnoses Date/Ti [...] AM EDT documented as of this encounter Visit Diagnoses Not on filedocumented in this encounter Additional Health Concerns Assessment Noted Time PHQ-9 Depression Total Score: 12 04/16/2 025 1:14 PM EST A fall risk assessment has been complete d for the patient 08/07/2024 9:25 AM EDT A Body Mass Index follow-up plan has been documented for the patient 08/07/2024 9:54 AM EDT documented as of this encounter Care Teams Job Printer Apprentice Relationship Specialty Start Date End Date Maury Park MD [address] [place] [address] PCP - General 06/06/23 documented as of this encounter
--- OUTSIDE RECORDS SUMMARY | 2024-12-18 16:43 | XMS_ITS | Encounter Summary ---
Author Organization [facility] Address [address] [place] [address] Care Team Providers Care Manager Organizational Name Role Phone Maury Park MD Primary Care Provider [phone] Encounter Details Date Type Department Care Team (Latest Contact Info) Description 12/04/2024 Travel Social History Tobacco Use Types Packs/Day [...] Hospital Encounter [facility] [address] [place] [phone] Amita Atkinson MD [address] [place] [address] 12/23/2024 10:30 AM EDT Anesthesia Event [facility] [address] [place] [phone] Muriel Back PA [address] [place] [address] 12/23/2024 10:30 AM EDT - 12/23/2024 3:10 PM EDT Surgery [facility] [address] [place] [address] Amita Atkinson MD [address] [place] [address] L4-L5 MIS PLF/TLIF w/Teligen 01/08/2025 11:20 AM EDT Office Visit [facility] [address] [place] [address] Stella Asher APRN, DNP [address] [place] [address] 02/06/2025 12:00 PM EST Office Visit [facility] [address] [place] [address] Stella Asher APRN, DNP [address] [place] [address] 04/08/2025 2:00 PM EST Office Visit [facility] [address] [place] [address] Amita Atkinson MD [address] [place] [phone] Scheduled Procedures Name Priority Associated Diagnoses Date/Ti [...] documented as of this encounter Care Teams Manager Organizational Relationship Specialty Start Date End Date Maruy Park MD [address] [place] [address] PCP - General 06/06/23 documented as of this encounter
--- OUTSIDE RECORDS SUMMARY | 2024-12-18 16:43 | XMS_ITS | Clinical Summary ---
Author Organization [facility] Address [address] [place] [address] Care Team Providers Care Donor Services Team Leader Name Role Phone [place] MD Primary Care Provider [phone] Allergies Active Allergy Reactions Criticality Noted Date Comments Clopidogrel Nausea Medium 10/17/2023 Medications rosuvastatin (Crestor) 20 MG tablet Take 1 tablet by mouth daily. 08/09/2022 Active lisinopril 10 MG tablet Take 1 tablet (10 mg) by mouth daily. 09/05/2022 Active ASPIRIN 81 MG chewable tablet Chew 1 tablet daily. Active nitroglycerin (Nitrostat) 0.[address] under the tongue every 5 (five) minutes if needed. Active cyclobenzaprine (Flexeril) 5 MG tablet Take 1 tablet (5 mg) by mouth 3 (three) times a day if needed for muscle spasms. 90 tablet 12/27/2023 Active meclizine (Antivert) 25 MG tablet take one (1) tablet three (3) times a day by oral route. 07/08/2024 Active promethazine (Phenergan) 25 MG tablet TAKE ONE (1) TABLET EVERY FOUR (4) HOURS BY ORAL ROUTE. 07/08/2024 Active rOPINIRole (Requip) 0.25 MG tablet take one (1) tablet every day by oral route in the evening. 07/02/2024 Active lisinopril 20 MG tablet Take 1 tablet by mouth daily. 10/29/2024 Active Hospital, Clinic, or Other Facility Administered Medication Ordered Dose Route Frequency Start Date End Date Status sodium chloride 0.9 % flush 10 mLIndications:Lumbar spondylosis 10 mL IV As needed 06/25/2024 Active sodium chloride 0.9 % flush 10 mLIndications:Lumbar spondylosis 10 mL IV As needed 06/25/2024 Active Active Problems Problem Noted Date Diagnosed Date Spinal stenosis of lumbar region 04/25/2024 Lumbar spondylosis 04/05/2024 Radiculopathy, lumbar region 12/06/2023 Pre-op testing 12/06/2023 Chronic midline low back pain with left-sided sc iatica 12/06/2023 Bleeding tendency 12/06/2023 Spinal stenosis of lumbar re gion with neurogenic claudication 11/03/2023 Encounters Date Type Department Care Team Description 12/04/2024 12:30 PM EDT Pre-Admission Testing [facility] [address] [place] [address] Preop examination (Primary Dx) 12/04/2024 11:20 AM EDT Consult [facility] [address] [place] [address] Stella Asher, CASINO ACCOUNTANT, DNP Pre-op testing (Primary Dx); Radiculopathy, lumbar region; Spinal stenosis of lumbar region with neurogenic claudication; Chronic midline low back pain with left-sided sciatica; Degeneration of intervertebral disc of lumbar region with discogenic back pain and lower extremity pain; Tobacco use 12/04/2024 Travel 12/03/2024 Travel from Last 3 Months Family History Medical History Relation Name Comments Anesthesia problems Neg Hx Malig Hyperthermia Neg Hx Social History Tobacco Use Types Packs/Day Years [...] on file Sexual Orientation Not on file Last Filed Vital Signs Vital Sign Reading Time Taken Comments Blood Pressure 120/80 12/04/2024 12:12 PM EDT Pulse 80 12/04/2024 12:12 PM EDT Temperature 36.7 C (98.1 F) 08/07/2024 9:24 AM EDT Respiratory Rate 12 08/07/2024 9:24 AM EDT Oxygen Saturation 97% 12/04/2024 12: 12 PM EDT Inhaled Oxygen Concentration - - Weight 83.4 kg (183 lb 13.8 oz) 025 12:12 PM EDT Height 177.8 cm (5' 10 ) 12/04/2024 12: 12 PM EDT Body Mass Index 26.38 12/04/2024 12:12 PM EDT Plan of Treatment Upcoming Encounters Date Type Department Care Team (Late st Contact Info) Description 12/23/2024 10:30 AM EDT Hospital Encounter [facility] [address] [place] [id number] Amita Atkinson MD [address] [place] [address] 12/23/2024 10:30 AM EDT Anesthesia Event [facility] [address] [place] [phone] Muriel Back PA [address] [place] [address] 12/23/2024 10:30 AM EDT - 12/23/2024 3:10 PM EDT Surgery [facility] [address] [place] [id number] Amita Atkinson MD [address] [place] [id number] [id number] MIS PLF/TLIF w/Teligen 01/08/2025 11:20 AM EDT Office Visit [facility] [address] [place] [address] Stella Asher, ALYSA, DNP [address] [place] [address] 02/06/2025 12:00 PM EST Office Visit [facility] [address] [place] [address] Stella Asher APRN, DNP [address] [place] [address] 04/08/2025 2:00 PM EST Office Visit [facility] [address] [place] [address] Amita Atkinson MD [address] [place] [address] Scheduled Procedures Name Priority Associated [...] neurogenic claudication present 12/23/2024 10:30 AM EDT Health Maintenance Due Date Last Done Comments [facility]-HIV Screening 1964 [facility]-Hepatitis C Screening 1964 [facility]-Infant/Child/Adol SDOH Screenings 1964 [facility]- SDOH Screenings 1982 [facility]-Adult SDOH Screenings 1982 CT Colonography 2009 Colonoscopy 2009 FIT-DNA 2009 FIT 2009 FOBT 2009 Sigmoidoscopy 2009 [facility]-Colorectal Cancer Screening 2009 [facility]-Pneumococcal Vaccine: 50+ Years (1 of 1 - PCV) 2014 [id number] Vaccine (4 - 2024- season) 2024 06/20/2022, 03/11/2021, 07/09/2020 [facility]-Influenza Vaccine (#1) 2024 04/14/2023, [facility]-Depression Screening 04/16/2025 04/16/2024, 04/03 [facility]-DTaP,Tdap,and Td Vaccines (2 - Td or Tdap) 10/03/2027 10/02/2017 [facility]-RSV Vaccine: 60+ Years or (1 - 1-dose 75+ series) 08/20/2039 [facility]-Zoster Vaccines Completed 11/11/2020, [facility]-Obesity Intervention Completed 025, 08/07/2024, 06/25/2024, Additional history exists HPV Vaccines Aged Out No longer eligi ble based on patient's age to complete this topic [facility]-HIB Vaccines Aged Out No longer e ligible based on patient's age to complete this topic [facility]-Hepatitis A Vaccines Aged Out No longer eligible based on patient's age to complete this topic [facility]-IPV Vaccines Aged Out No longer e ligible based on patient's age to complete this topic [facility]-Rotavirus Vaccines Aged Out No lo nger eligible based on patient's age to complete this topic Procedures Procedure Name Priority Date/Time Associated Diagnosis Comments URINALYSIS WITH REFLEX MICROSCOPIC Routine 12/04/2024 2:02 PM EDT Pre-op testing NICOTINE AND METABOLITE, URINE (INHOUSE) Routine 12/04/2024 2:02 PM EDT Pre-op testing Tobacco use COMPREHENSIVE URINE DRUG SCREENING,QUALITATIVE ASSAY, >= 27 DRUG CLASSES Routine 12/04/2024 2:02 PM EDT Pre-op testing HEMOGLOBIN A1C Routine 12/04/2024 1:56 PM EDT Pre-op testing BASIC METABOLIC PANEL, PLASMA Routine 12/04/2024 1:56 PM EDT Pre-op testing CBC WITH AUTO DIFFERENTIAL Routine 12/04/2024 1:56 PM EDT Pre-op testing APTT Routine 12/04/2024 1:56 PM EDT Pre-op testing PROTHROMBIN TIME(PT) / INR Routine 12/04/2024 1:56 PM EDT Pre-op testing ECG ADULT Routine 12/04/2024 1:23 PM EDT Preop examination from Last 3 Months Results * (ABNORMAL) Nicotine and Cotinine, Urine (12/04/2024 2:02 PM EDT) Nicotine, Urine 63(H) <5 ng/mL 12/09/2024 12:28 PM EDT [facility] Cotinine, Urine 844(H) <5 ng/mL 12/09/2024 12:28 PM EDT [facility] Anabasine, Urine <2 <2 ng/mL 12/09/2024 12:28 PM EDT [facility] Urine Urine specimen obtained by clean catch procedure / Unknown Non-blood Collection / Unknown 12/04/2024 2:02 PM EDT 12/04/2024 2:02 PM EDT Narrative [facility] - 12/09/2024 12:28 PM EDT Test performed by LC-MS/MS at the [facility]. This test was developed and its performance characteristics determined by [facility]. It has not been cleared or approved by the FDA. The laboratory is regulated under CLIA as qualified to perform high-complexity testing. This test is used for clinical purposes. us Stella Asher APRN, DNP LAB URINE ORDERABLES F inal Result [facility] [address] [place] [address] * (ABNORMAL) Comprehensive Urine Drug Screening, Qualitative Assay, >= 27 Drug Classes (52:02 PM EDT) Acetaminophen Negative Negative 12/05/2024 10:15 AM EDT [facility] Alprazolam Negative Negative 12/05/2024 10:15 AM EDT [facility] Amantadine Negative Negative 12/05/2024 10:15 AM EDT [facility] Amitriptyline Negative Negative 12/05/2024 10:15 AM EDT [facility] Amphetamine Negative Negative 12/05/2024 10:15 AM EDT [facility] Atenolol Negative Negative 12/05/2024 10:15 AM EDT [facility] Benzoylecgonine Negative Negative 10:15 AM EDT [facility] Bisoprolol Negative Negative 12/05/2024 10:15 AM EDT [facility] Bupropion Negative Negative 12/05/2024 10:15 AM EDT [facility] Butalbital Negative Negative 12/05/2024 10:15 AM EDT [facility] Carbamazepine Negative Negative 12/05/2024 10:15 AM EDT [facility] Carisoprodol Negative Negative 12/05/2024 10:15 AM EDT [facility] Chlorpheniramine Negative Negative 12/06/19 10:15 AM EDT [facility] Citalopram Negative Negative 12/05/2024 10:15 AM EDT [facility] Clindamycin Negative Negative 12/05/2024 10:15 AM EDT [facility] Clonidine Negative Negative 12/05/2024 10:15 AM EDT [facility] Clopidogrel / Ticlopidine Negative Negative 12/05/2024 10:15 AM EDT [facility] Cocaethylene Negative Negative 12/05/2024 10:15 AM EDT [facility] Cocaine Negative Negative 12/05/2024 10:15 AM EDT [facility] Codeine Negative Negative 12/05/2024 10:15 AM EDT [facility] Cyclobenzaprine Negative Negative 10:15 AM EDT [facility] Desvenlafaxine Negative Negative 12/05/2024 10:15 AM EDT [facility] Dextromethorphan Negative Negative 12/06/19 10:15 AM EDT [facility] Diazepam Negative Negative 12/05/2024 10:15 AM EDT [facility] Diltiazem Negative Negative 12/05/2024 10:15 AM EDT [facility] Diphenhydramine Negative Negative 10:15 AM EDT [facility] Doxepine Negative Negative 12/05/2024 10:15 AM EDT [facility] Doxylamine Negative Negative 12/05/2024 10:15 AM EDT [facility] EDDP-Methadone metabolite Negative Negative 12/05/2024 10:15 AM EDT [facility] Fentanyl Negative Negative 12/05/2024 10:15 AM EDT [facility] Fluconazole Negative Negative 12/05/2024 10:15 AM EDT [facility] Fluoxetine Negative Negative 12/05/2024 10:15 AM EDT [facility] Guaifenesin Negative Negative 12/05/2024 10:15 AM EDT [facility] Haloperidol Negative Negative 12/05/2024 10:15 AM EDT [facility] Heroin/6-BREA Negative Negative 12/05/2024 10:15 AM EDT [facility] Hydrocodone Negative Negative 12/05/2024 10:15 AM EDT [facility] Hydroxyzine / Cetirizine metabolite Negative Negative 12/05/2024 10:15 AM EDT [facility] Ibuprofen Negative Negative 12/05/2024 10:15 AM EDT [facility] Imipramine Negative Negative 12/05/2024 10:15 AM EDT [facility] Ketamine Negative Negative 12/05/2024 10:15 AM EDT [facility] Labetolol Negative Negative 12/05/2024 10:15 AM EDT [facility] Lamotrigine Negative Negative 12/05/2024 10:15 AM EDT [facility] Levetiracetam Negative Negative 12/05/2024 10:15 AM EDT [facility] Lidocaine Negative Negative 12/05/2024 10:15 AM EDT [facility] MDA Negative Negative 12/05/2024 10:15 AM EDT [facility] MDMA Negative Negative 12/05/2024 10:15 AM EDT [facility] Memantine Negative Negative 12/05/2024 10:15 AM EDT [facility] Meperidine Negative Negative 12/05/2024 10:15 AM EDT [facility] Meprobamate Negative Negative 12/05/2024 10:15 AM EDT [facility] Metaxalone Negative Negative 12/05/2024 10:15 AM EDT [facility] Methamphetamine Negative Negative 10:15 AM EDT [facility] Methocarbamol Negative Negative 12/05/2024 10:15 AM EDT [facility] Methylecgonine Negative Negative 12/05/2024 10:15 AM EDT [facility] Metoclopramide Negative Negative 12/05/2024 10:15 AM EDT [facility] Metoprolol Negative Negative 12/05/2024 10:15 AM EDT [facility] Metronidazole Negative Negative 12/05/2024 10:15 AM EDT [facility] Midazolam Negative Negative 12/05/2024 10:15 AM EDT [facility] Midazolam Metabolite Negative Negative 12/05/2024 10:15 AM EDT [facility] Mirtazapine Negative Negative 12/05/2024 10:15 AM EDT [facility] Misc Test Result Negative Negative 12/06/19 10:15 AM EDT [facility] Naproxen Positive(A) Negative 12/05/2024 10:15 AM EDT [facility] Nefazodone Negative Negative 12/05/2024 10:15 AM EDT [facility] Norfentanyl Negative Negative 12/05/2024 10:15 AM EDT [facility] Nortriptyline Negative Negative 12/05/2024 10:15 AM EDT [facility] Ordanstron Negative Negative 12/05/2024 10:15 AM EDT [facility] Oxcarbazepine Negative Negative 12/05/2024 10:15 AM EDT [facility] Oxycodone Negative Negative 12/05/2024 10:15 AM EDT [facility] Paroxethine Negative Negative 12/05/2024 10:15 AM EDT [facility] Phenobarbital Negative Negative 12/05/2024 10:15 AM EDT [facility] Phentermine Negative Negative 12/05/2024 10:15 AM EDT [facility] Phenytoin Negative Negative 12/05/2024 10:15 AM EDT [facility] Primidone Negative Negative 12/05/2024 10:15 AM EDT [facility] Promethazine Negative Negative 12/05/2024 10:15 AM EDT [facility] Propofol Negative Negative 12/05/2024 10:15 AM EDT [facility] Propranolol Negative Negative 12/05/2024 10:15 AM EDT [facility] Quetiapine Negative Negative 12/05/2024 10:15 AM EDT [facility] Quinine Negative Negative 12/05/2024 10:15 AM EDT [facility] Rantidine Negative Negative 12/05/2024 10:15 AM EDT [facility] Sertraline Negative Negative 12/05/2024 10:15 AM EDT [facility] Spironolactone Negative Negative 12/05/2024 10:15 AM EDT [facility] Tizanidine Negative Negative 12/05/2024 10:15 AM EDT [facility] Topiramate Negative Negative 12/05/2024 10:15 AM EDT [facility] Tramadol Negative Negative 12/05/2024 10:15 AM EDT [facility] Trazadone/ Trazadone metabolite Negative Negative 12/05/2024 10:15 AM EDT [facility] Trimethoprim Negative Negative 12/05/2024 10:15 AM EDT [facility] Valproic Acid Negative Negative 12/05/2024 10:15 AM EDT [facility] Venlafaxine Negative Negative 12/05/2024 10:15 AM EDT [facility] Verapamil Negative Negative 12/05/2024 10:15 AM EDT [facility] Zolpidem Negative Negative 12/05/2024 10:15 AM EDT [facility] Xylazine Negative Negative 12/05/2024 10:15 AM EDT [facility] Urine Urine specimen obtained by clean catch procedure / Unknown Non-blood Collection / Unknown 12/04/2024 2:02 PM EDT 12/04/2024 2:02 PM EDT us Stella Asher CASINO ACCOUNTANT, DNP LAB URINE ORDERABLES F inal Result [facility] [address] [place] [address] * (ABNORMAL) Urinalysis with reflex microscopic (12/04/2024 2:02 PM EDT) Color, Urine Yellow LAB URINALYSIS - AUTOMATED METHOD 12/04/2024 3:36 PM EDT [facility] Clarity, Urine Clear LAB URINALYSIS - AUTOMATED METHOD 12/04/2024 3:36 PM EDT [facility] Spec Topping, Urine 1.022 1.005 - 1.030 LAB URINALYSIS - AUTOMATED METHOD 12/04/2024 3:36 PM EDT [facility] pH, Urine 7.5 5.0 - 8.0 LAB URINALYSIS - AUTOMATED METHOD 12/04/2024 3:36 PM EDT [facility] Protein, Urine Trace(A) Negative mg/dL LAB URINALYSIS - AUTOMATED METHOD 12/04/2024 3:36 PM EDT [facility] Glucose, Urine Negative Negative mg/dL LAB URINALYSIS - AUTOMATED METHOD 12/04/2024 3:36 PM EDT [facility] Ketones, Urine Negative Negative mg/dL LAB URINALYSIS - AUTOMATED METHOD 12/04/2024 3:36 PM EDT [facility] Blood, Urine Negative Negative LAB URINALYSIS - AUTOMATED METHOD 12/04/2024 3:36 PM EDT [facility] Bilirubin, Urine Negative Negative LAB URINALYSIS - AUTOMATED METHOD 12/04/2024 3:36 PM EDT [facility] Urobilinogen, Urine 0.2 0.2 to 1.0 mg/dL LAB URINALYSIS - AUTOMATED METHOD 12/04/2024 3:36 PM EDT [facility] Leukocytes, Urine Negative Negative LAB URINALYSIS - AUTOMATED METHOD 12/04/2024 3:36 PM EDT [facility] Nitrite, Urine Negative Negative LAB URINALYSIS - AUTOMATED METHOD 12/04/2024 3:36 PM EDT [facility] Urine Urine specimen obtained by clean catch procedure / Unknown Non-blood Collection / Unknown 12/04/2024 2:02 PM EDT 12/04/2024 2:02 PM EDT Stella Asher APRN, ARVIN LAB URINE ORDERABLES F inal Result Performing Organization Address City/[facility]/ZIP Co de Phone Number [facility] [address] [place] [address] * APTT (12/04/2024 1:56 PM EDT) aPTT 33 25 - 35 sec LAB COAGULATION METHOD 12/04/2024 3:44 PM EDT [facility] Blood Venous blood specimen / Unknown Venipuncture / Unknown 12/04/2024 1:56 PM EDT 12/04/2024 1:56 PM EDT Stella Asher APRN, ARVIN LAB BLOOD ORDERABLES F inal Result Performing Organization Address City/[facility]/ZIP Co de Phone Number [facility] [address] [place] [address] * Protime-INR (12/04/2024 1:56 PM EDT) Prothrombin Time 13.0 12.0 - 14.3 sec LAB COAGULATION METHOD 12/04/2024 3:44 PM EDT [facility] INR 1.0 0.9 - 1.1 LAB COAGULATION METHOD 12/04/2024 3:44 PM EDT [facility] Blood Venous blood specimen / Unknown Venipuncture / Unknown 12/04/2024 1:56 PM EDT 12/04/2024 1:56 PM EDT Narrative [facility] - 12/04/2024 3:44 PM EDT OPTIMAL INR RANGES FOR PATIENT ON ORAL ANTICOAGULANT THERAPY Prevention of venous thromboembolism INR 2.0 to 3.0 In patients with heart disease: Atrial fibrillation INR 2.0 to 3.0 Valvular heart disease INR 2.0 to 3.0 Tissue heart valves INR 2.0 to 3.0 Mechanical prosthetic valves INR 2.5 to 3.5 Prevention of recurrent WA INR 2.5 to 3.5 us Stella Asher CASINO ACCOUNTANT, DNP LAB BLOOD ORDERABLES F inal Result [facility] [address] [place] [address] * (ABNORMAL) CBC and differential (12/04/2024 1:56 PM EDT) WBC Count 7.95 3.70 - 10.30 10*3/uL LAB HEMATOLOGY METHOD 12/04/2024 3:39 PM EDT [facility] RBC Count 4.15(L) 4.60 - 6.10 10*6/uL LAB HEMATOLOGY METHOD 12/04/2024 3:39 PM EDT [facility] HGB 13.0(L) 13.7 - 17.5 g/dL LAB HEMATOLOGY METHOD 12/04/2024 3:39 PM EDT [facility] HCT 37.8(L) 40.0 - 51.0 % LAB HEMATOLOGY METHOD 12/04/2024 3:39 PM EDT [facility] Platelet Count 288 155 - 369 10*3/uL LAB HEMATOLOGY METHOD 12/04/2024 3:39 PM EDT [facility] MCV 91 79 - 98 fL LAB HEMATOLOGY METHOD 12/04/2024 3:39 PM EDT [facility] MCH 31.3 26.0 - 32.0 pg LAB HEMATOLOGY METHOD 12/04/2024 3:39 PM EDT [facility] MCHC 34.4 30.7 - 35.5 g/dL LAB HEMATOLOGY METHOD 12/04/2024 3:39 PM EDT [facility] RDW 13.9 11.5 - 14.5 % LAB HEMATOLOGY METHOD 12/04/2024 3:39 PM EDT [facility] MPV 9.3 8.8 - 12.5 fL LAB HEMATOLOGY METHOD 12/04/2024 3:39 PM EDT [facility] nRBC 0.0 <=0.0 per 100 WBCs LAB HEMATOLOGY METHOD 12/04/2024 3:39 PM EDT [facility] Differential Type Automated LAB HEMATOLOGY METHOD 12/04/2024 3:39 PM EDT [facility] Neutrophils % 69 % LAB HEMATOLOGY METHOD 12/04/2024 3:39 PM EDT [facility] Lymphocytes % 21 % LAB HEMATOLOGY METHOD 12/04/2024 3:39 PM EDT [facility] Monocytes % 6 % LAB HEMATOLOGY METHOD 12/04/2024 3:39 PM EDT [facility] Eosinophils % 3 % LAB HEMATOLOGY METHOD 12/04/2024 3:39 PM EDT [facility] Basophils % 1 % LAB HEMATOLOGY METHOD 12/04/2024 3:39 PM EDT [facility] Immature Granulocytes % 0 % LAB HEMATOLOGY METHOD 12/04/2024 3:39 PM EDT [facility] Neutrophils Absolute 5.48 1.60 - 6.10 10*3/uL LAB HEMATOLOGY METHOD 12/04/2024 3:39 PM EDT [facility] Lymphocytes Absolute 1.67 1.20 - 3.90 10*3/uL LAB HEMATOLOGY METHOD 12/04/2024 3:39 PM EDT [facility] Monocytes Absolute 0.47 0.30 - 0.90 10*3/uL LAB HEMATOLOGY METHOD 12/04/2024 3:39 PM EDT [facility] Eosinophils Absolute 0.27 0.00 - 0.50 10*3/uL LAB HEMATOLOGY METHOD 12/04/2024 3:39 PM EDT [facility] Basophils Absolute 0.04 0.00 - 0.10 10*3/uL LAB HEMATOLOGY METHOD 12/04/2024 3:39 PM EDT [facility] Immature Granulocytes Absolute 0.02 0.00 - 0.06 10*3/uL LAB HEMATOLOGY METHOD 12/04/2024 3:39 PM EDT [facility] Blood Venous blood specimen / Unknown Venipuncture / Unknown 12/04/2024 1:56 PM EDT 12/04/2024 1:56 PM EDT Narrative [facility] - 12/04/2024 3:39 PM EDT Therapeutic decision making should be based on absolute values, rather than percentages. Stella Asher APRN, DNP LAB BLOOD ORDERABLES F inal Result Performing Organization Address [facility]/ZIP Co de Phone Number [facility] [address] [place] [address] * Hemoglobin A1c (12/04/2024 1:56 PM EDT) Hemoglobin A1c 5.5 <5.7 % 12/04/2024 4:35 PM EDT [facility] Blood Venous blood specimen / Unknown Venipuncture / Unknown 12/04/2024 1:56 PM EDT 12/04/2024 1:56 PM EDT Narrative [facility] - 12/04/2024 4:35 PM EDT HA1C Interpretive Data: Diagnosis of Diabetes: Diabetic > or = 6.5% Pre-diabetic 5.7 to 6.4% Non-diabetic < or = 5.6% Glycemic Targets for Type I and Type II Diabetics: Non- Adults <7.0% Adults <6.0% Children and Adolescents <7.5% Source: Citizen Of [place] Diabetes Association. Standards of medical care in diabetes,2017. Diabetes Care.2017:40 (suppl 1):S1-S135. Stella Asher APRN, DNP LAB BLOOD ORDERABLES F inal Result Performing Organization Address [facility] Co de Phone Number [facility] [address] [place] [address] * (ABNORMAL) Basic metabolic panel (12/04/2024 1:56 PM EDT) Glucose, Plasma 74 74 - 99 mg/dL 12/04/2024 3:54 PM EDT [facility] BUN, Plasma 17 8 - 23 mg/dL 12/04/2024 3:54 PM EDT [facility] Creatinine, Plasma 1.27(H) 0.70 - 1.20 mg/dL 12/04/2024 3:54 PM EDT [facility] BUN/Creatinine Ratio 13 12/04/2024 3:54 PM EDT [facility] Sodium, Plasma 138 136 - 145 mmol/L 12/04/2024 3:54 PM EDT [facility] Potassium, Plasma 4.2 3.6 - 4.9 mmol/L 12/04/2024 3:54 PM EDT [facility] Chloride, Plasma 102 97 - 107 mmol/L 12/04/2024 3:54 PM EDT [facility] CO2, Plasma 23 22 - 29 mmol/L 12/04/2024 3:54 PM EDT [facility] Anion Gap 13 6 - 16 mmol/L 12/04/2024 3:54 PM EDT [facility] Total Calcium, Plasma 9.2 8.9 - 10.2 mg/dL 12/04/2024 3:54 PM EDT [facility] eGFRcr 64.7 mL/min/1.7 3m*2 12/04/2024 3:54 PM EDT [facility] Comment:Reported eGFRcr in m L/min/1.73m2 is based the CKD-EPI 2020 equation that does not use a race coefficient. Blood Venous blood specimen / Unknown Venipuncture / Unknown 12/04/2024 1:56 PM EDT 12/04/2024 1:56 PM EDT us Stella Asher APRN, [facility] BLOOD ORDERABLES F inal Result [facility] [address] [place] [address] * ECG Adult (Now - Performed in your clinic) (12/04/2024 1:23 PM EDT) EKG DIAGNOSIS CLASS Normal MUSE ECG Ventricular Rate 76 BPM MUSE ECG Atrial Rate 76 BPM MUSE ECG [place] Interval 138 ms MUSE ECG QRSD Interval 66 ms MUSE ECG QT Interval 354 ms MUSE ECG QTC Interval 398 ms MUSE ECG P [place] 59 degrees MUSE ECG R [place] 25 degrees MUSE ECG T Wave [place] 45 degrees MUSE ECG Diagnosis Normal sinus rhythm MUSE ECG Diagnosis MUSE ECG Diagnosis MUSE ECG Diagnosis Confirmed by Manuel Salamanca ([id number]) on 12/04/2024 2:00:11 PM MUSE ECG 12/04/2024 1:23 PM EDT 12/04/2024 2:00 PM EDT us Muriel DORANTES ECG ORDERABLES Final Resu lt MUSE ECG from Last 3 Months Insurance [facility] [place] [id number] [facility] MEDICAID Care Teams Donor Services Team Leader Relationship Specialty Start Date End Date Maury Park MD [address] [place] [id number] PCP - General 06/06/23
--- OUTSIDE RECORDS SUMMARY | 2024-12-18 16:44 | XMS_ITS | Clinical Summary ---
[facility] Organization [facility] Address [address] [place] [address] Care Team Providers Care Blower [employer]eder [employer] Name Role Phone Maury Park MD Primary Care Provider [phone] Allergies No known active allergies Medications aspirin 81 MG chewable tablet Chew 81 mg Daily. Active ciprofloxacin (CIPRO) 500 MG tablet TAKE ONE (1) TABLET EVERY 12 HOURS BY ORAL ROUTE FOR 10 DAYS. 12/03/2021 Active Active Problems Problem Noted Date Diagnosed Date Lung nodule 11/05/2021 Mediastinal lymphadenopathy 11/05/2021 Family History Medical History Relation Name Comments Cancer Brother No Known Problems Father Coronary artery disease Mother Relation Name Status Comments Brother Father Mother Social History Tobacco Use Types Packs/Day Years Used Date Smoking Tobacco: Former Cigarettes 1 40 0 09/05/1981 - 09/05/2021 Smokeless Tobacco: Current Chew Comments:Pt states that he h as chewed tobacco ever since he was a small child Alcohol Use Standard Drinks/Week Comments Yes 7 (1 standard drink = 0.6 oz pur e alcohol) 1 can of beer a daily Abuse Screen Answer Date Recorded Unsafe at Home or Work/School Not on file Feels Threatened by Someone? Not on file Does Anyone Keep You from Co ntacting Others or Doint Things Outside the Home? Not on file 01/13/2023 Physical Sign of Abuse Present Not on file 1 Housing Stability Answer Date Recorded Current Living Arrangements Not on file 01/01 Potentially Unsafe Housing Conditions Not on carlos e 01/13/2023 Family and Community Support Answer Joaquín e Recorded Help with Day-to-Day Activities Not on file 01/13/2023 Lonely or Isolated Not on file 01/13/2023 Employment Answer Date Recorded Do you want help finding or keeping work or a yuval b? Not on file 01/13/2023 Disabilities Answer Date Recorded Concentrating, Remembering, or Making Decisions Difficulty Not on file 01/13/2023 Doing Errands Independently Difficulty Not on fi le 01/13/2023 Education Answer Date Recorded Help with school or training? 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 on file Not on file Not on file Last Filed Vital Signs Vital Sign Reading Time Taken Comments Blood Pressure 154/82 12/09/2021 3:22 PM EDT Pulse 93 12/09/2021 3:22 PM EDT Temperature 37.3 C (99.1 F) 12/09/2021 3:22 PM EDT Respiratory Rate 16 11/25/2021 1:15 PM EDT Oxygen Saturation 99% 12/09/2021 3:22 PM EDT Inhaled Oxygen Concentration - - Weight 74.9 kg (165 lb 3.2 oz) 12/09/2021 3:22 P M EDT Height 175.3 cm (5' 9 ) 12/09/2021 3:22 PM EDT Body Mass Index 24.4 12/09/2021 3:22 PM EDT Plan of Treatment Health Maintenance Due Date Last Done Comments COLOGUARD 2009 COLON CANCER SCREENING 5 YEA R SIGMOIDOSCOPY 2009 COLONOSCOPY [address] SCREENING [address] COLONOGRAPHY 2009 FECAL OCCULT BLOOD TEST 2009 FIT Testing (1 year) 2009 Pneumococcal Vaccine 50+ (1 of 1 - PCV) 2014 ANNUAL PHYSICAL 11/05/2021 HEPATITIS C SCREENING 11/05/2021 COVID-19 Vaccine (3 - 2024- season) 12/02/202412/2020, 07/09/2020 INFLUENZA VACCINE 01/01/2025 TDAP/TD VACCINES (2 - Td or Tdap) 10/03/2027 018 ZOSTER VACCINE Completed 11/11/2020, 05/15/2020 Care Teams B[employer] Relationship Specialty Start Date End Date Maury Park MD [address] [place] [address] PCP - General Family Medicine 11/05/21
== END 2024-12-18 23:59 | disposition home or self-care (01) ==
LOC: RAD 16:41
PROVIDERS: Visit Provider Nurse Practitioner Critical Care Medicine
DX: Z01.818 Encounter for other preprocedural examination (principal); M48.062 Spinal stenosis, lumbar region with neurogenic claudication; M51.362 Other intervertebral disc degeneration, lumbar region with discogenic back pain and lower extremity pain; M51.16 Intervertebral disc disorders with radiculopathy, lumbar region; G89.29 Other chronic pain; M47.26 Other spondylosis with radiculopathy, lumbar region; M51.379 Other intervertebral disc degeneration, lumbosacral region without mention of lumbar back pain or lower extremity pain; M47.817 Spondylosis without myelopathy or radiculopathy, lumbosacral region; Z72.0 Tobacco use
CPT/HCPCS: 72148